=== PATIENT | female | born 1940 | race Caucasian/White ===

== ENCOUNTER → 2016-06-26 | Outpatient (CLI) | payer OTHER ==
--- NOTE | 2016-06-26 18:14 | US ---
Ultrasound Venous Duplex/Doppler left Leg History: Pain and swelling. Findings: Ultrasound venous duplex and Doppler imaging of the common femoral vein, femoral vein, pop liteal vein, calf veins, greater saphenous vein origin, and contralateral common femoral vein demonst rates normal compressibility, color flow, and Doppler flow without deep venous thrombosis. Impression: No deep venous thrombosis left leg. Findings and recommendations discussed with Dr. Fredis Sneed at 1810 hour, today.
== END ==
LOC: FIMAGING 17:12
PROVIDERS: ATTEND Orthopaedic Surgery
DX: M79.605 Pain in left leg (principal); M79.89 Other specified soft tissue disorders

== ENCOUNTER → 2016-10-14 | Outpatient (CLI) | payer OTHER | LOC: BMCIMAGING 14:03 | DX: Z12.31 Encounter for screening mammogram for malignant neoplasm of breast (principal) | CPT/HCPCS: G0202 ==

== ENCOUNTER → 2017-08-12 | Outpatient (CLI) | payer OTHER | LOC: BMCIMAGING 11:28 | PROVIDERS: ATTEND Emergency Medicine | DX: J40 Bronchitis, not specified as acute or chronic (principal) ==

== ENCOUNTER → 2017-10-08 | Outpatient (CLI) | payer OTHER, MEDICARE | LOC: BMCIMAGING 14:59 | PROVIDERS: ATTEND Internal Medicine | DX: N95.0 Postmenopausal bleeding (principal); N85.8 Other specified noninflammatory disorders of uterus; Z79.890 Hormone replacement therapy ==

== ENCOUNTER → 2017-10-16 | Outpatient (CLI) | payer OTHER, MEDICARE | LOC: BMCIMAGING 12:56 | PROVIDERS: ATTEND Internal Medicine | DX: Z12.31 Encounter for screening mammogram for malignant neoplasm of breast (principal) ==

== ENCOUNTER 2018-04-19 04:43 | Day surgery (SDC) | payer OTHER, MEDICARE ==
--- NOTE | 2018-04-18 14:37 | GHP ---
DATE OF ADMISSION: 04/19/2018 DATE OF PLANNED PROCEDURE: 04/19/2018. PREOPERATIVE DIAGNOSIS: Full thickness rotator cuff tear, right shoulder. PLANNED PROCEDURE: Arthroscopic rotator cuff repair, subacromial decompression. HISTORY: The patient is a 77-year-old female who has had almost a year now worth of shoulder pain, f eric conservative management. MRI from last spring showed a full-thickness rotator cuff tear with i mpingement anatomy. Decision was made to proceed with a cuff repair and decompression. PRIOR MEDICAL HISTORY: High cholesterol, chronic low back pain, osteopenia, osteoarthritis. PRIOR SURGICAL HISTORY: Knee scope. MEDICATIONS: Atorvastatin 40 mg, gabapentin 100 mg, zolpidem 10 mg. ALLERGIES: No drug allergies. SOCIAL HISTORY: She is . [place] here [place] town. Former smoker. Occasional alcohol use. REVIEW OF SYSTEMS: No shortness of breath or chest pain. Otherwise, review of systems is unremarkab le. PHYSICAL EXAM: GENERAL: 77-year-old female, alert orient x3. She is 4 feet 11 inches tall, weighs 132 pounds. VITAL SIGNS: Blood pressure is 125/71, heart rate 68, respiratory rate is 14 on room ai r. HEENT: Normocephalic, atraumatic. Extraocular muscles intact. NECK: Supple. There is no lymp hadenopathy. No JVD. CHEST: Clear to auscultation. CARDIOVASCULAR: Regular rate and rhythm. ABD OMEN: Soft, nontender, nondistended. There is no hepatosplenomegaly. EXTREMITIES: Right shoulder shows no obvious deformity or atrophy. Active range of motion with full extension, 170 degrees of fl exion, 70 degrees of external rotation, internal rotation she can get her thumb to L1. Cuff strength supraspinatus is 3/5, infraspinatus 4-/5, subscapularis 4+/5. Positive impingement sign. IMAGING: MRI from [facility] is reviewed. It does show a full-thickness supraspinatus tear invol ving the anterior aspect of the tendon. There is impingement type anatomy with type 2 acromion and s ubacromial bursitis. Moderate arthrosis at the AC joint. Biceps tendon appears intact. ASSESSMENT: Full-thickness rotator cuff tear right shoulder. PLAN: We will proceed with a rotator cuff repair, decompression of the shoulder, possible distal cla vicle excision. Preoperative paperwork was completed. Risks and benefits including continued pain, re-tear of the rotator cuff repair, need for immobilization before 6 weeks postoperatively. She unde rstands these risks and wished to proceed. /[id number]/MODL
[2018-04-19] MEDS ORDERED: ceFAZolin 2 GM/DEXTROSE 100 ML IV ONE (06:04)
[2018-04-19] MEDS ORDERED: LR 1,000 ML IV ONE (06:28)
[2018-04-19] MEDS ORDERED: LIDOCAINE 1% 2 ML INJ ID PRN (06:28)
[2018-04-19] MEDS ORDERED: LIDO/EPI 1% **for epidural** 30 ML SDV ONE (06:48)
[2018-04-19] MEDS ORDERED: BUPIVACAINE/EPI 0.5% 30 ML SDV ONE (06:48)
[2018-04-19] MEDS ORDERED: EPINEPHrine 30 MG/30 ML MDV (0.1 MG/0.1 ML) ONE (06:50)
[2018-04-19] MEDS ORDERED: MIDAZOLAM 2 MG/2 ML VIAL ONE (07:02)
--- NOTE | 2018-04-19 07:07 | PDHPUP ---
History & Physical Update H&P update statement: This history and physical update is based on an assessment of the patient which was completed after admission or registration (within 24 hours), but prior to the surgery/procedure. H&P update: H&P reviewed & patient examined, no change in patient's condition since H&P completed
[2018-04-19] MEDS ORDERED: PROPOFOL 200 MG/20 ML VIAL ONE (07:13)
[2018-04-19] MEDS ORDERED: THROMBIN (BOVINE) 5,000 UNIT VIAL TP ONE (07:23)
[2018-04-19] MEDS ORDERED: CALCIUM CHLORIDE 1 GM/10 ML INJ ONE (07:23)
[2018-04-19] MEDS ORDERED: DEXAMETHASONE 4 MG/ML VIAL ONE (07:39)
[2018-04-19] MEDS ORDERED: ONDANSETRON 4 MG/2 ML VIAL ONE ×2 (07:39→08:53)
[2018-04-19] MEDS ORDERED: MIDAZOLAM 2 MG/2 ML VIAL IVP ONE (07:42)
[2018-04-19] MEDS ORDERED: NALOXONE HCL 0.4 MG/ML INJ IVP PRN (07:42)
[2018-04-19] MEDS ORDERED: ACETAMINOPHEN 500 MG TAB PO PRN (07:42)
[2018-04-19] MEDS ORDERED: fentaNYL 100 MCG/2 ML INJ IVP PRN (07:42)
[2018-04-19] MEDS ORDERED: HYDROCODONE/APAP 5/325 TAB PO PRN (07:42)
[2018-04-19] MEDS ORDERED: HYDROmorphONE/DILAUDID 2 MG/ML INJ IVP PRN (07:42)
[2018-04-19] MEDS ORDERED: ONDANSETRON 4 MG/2 ML VIAL IVP PRN (07:42)
--- NOTE | 2018-04-19 07:44 | PDANEPAE ---
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 bruises easily. hx of recent blepharitis - Chronic Pain History Chronic Pain: Yes (low back, right side) - Surgical History Prior Surgeries: hysteroscopy/polypectomy. tubal ligation. cervical surgery. hip replacement, right. cataract surgery. right menuscus repair. breast reduction ANE Review of Systems Review of Systems: - Exercise capacity METS (RN): 4 METS ANE Patient History - Allergies Allergies/Adverse Reactions: meperidine HCl [From Demerol] Allergy (Verified 04/02/18 14:28) dizziness, nausea oxycodone [Oxycodone] Allergy (Verified 04/02/18 14:28) dizziness, nausea - Home Medications Home Medications: Acid Dial Painter 04/02/18 [Last Taken 04/18/18] Estradiol 04/02/18 [Last Taken 04/18/18] Ibuprofen 04/02/18 [Last Taken 03/24/18] Lipitor 40 mg (*) 04/02/18 [Last Taken 04/18/18] Meloxicam 04/02/18 [Last Taken 03/24/18] Nicotine Gum 04/02/18 [Last Taken 04/19/18] Progesterone,Micronized [Prometrium] 04/02/18 [Last Taken 04/18/18] Restasis Opht Drops(*) 04/02/18 [Last Taken 04/19/18] Vitamin B12 (*) 04/02/18 [Last Taken 04/18/18] Vitamin D3 04/02/18 [Last Taken 04/18/18] Zolpidem Tartrate 04/02/18 [Last Taken 04/18/18] Maxitrol Opht Drops (*) 04/19/18 [Last Taken 04/18/18] - NPO status NPO Since - Liquids (Date): 04/18/18 NPO Since - Liquids (Time): 22:15 NPO Since - Solids (Date): 04/18/18 NPO Since - Solids (Time): 19:30 - Smoking Hx Smoking Status: Former smoker - Family Anes Hx Family Hx Anesthesia Complications: none ANE Labs/Vital Signs - Vital Signs Blood Pressure: 166/93 Heart Rate: 69 Respiratory Rate: 14 O2 Sat (%): 98 Height: 151.13 cm Weight: 60.781 kg ANE Physical Exam - Airway Neck exam: FROM Mallampati Score: Class 2 Mouth exam: normal dental/mouth exam - Pulmonary Pulmonary: clear to auscultation - Cardiovascular Cardiovascular: regular rate and rhythym - ASA Status ASA Status: II ANE Anesthesia Plan Anesthesia Plan: GA w LMA Regional Anesthesia: interscalene BP NB
[2018-04-19] MEDS ORDERED: fentaNYL 100 MCG/2 ML INJ ONE (08:27)
[2018-04-19] MEDS ORDERED: METOCLOPRAMIDE 10 MG/2 ML VIAL ONE (08:27)
[2018-04-19] MEDS ORDERED: SCOPOLAMINE HYDROBROMIDE 1 MG/3 DAYS PATCH TD ONE (08:59)
[2018-04-19] MEDS ORDERED: PROMETHAZINE HCL 25 MG/ML INJ ONE (09:03)
--- NOTE | 2018-04-19 09:05 | POSTOPPROG ---
Post Op Note Date of Operation: 04/19/18 Surgeon: Fredis Sneed Regional Sales Trainer: John spann Anesthesiologist: Dorothy Anesthesia: GET(General Endotracheal) Pre-op Diagnosis: RC tear Rt Post-op Diagnosis: same Procedure: RC repair, SAD, labral debridement Findings: Full thickness RC tear Inf/Abcess present in the surg proc area at time of surgery?: No EBL: Minimal Complications: none
[2018-04-19] MEDS: PROMETHAZINE HCL 25 MG/ML INJ IVP PRN ×2 (09:06→09:19)
--- NOTE | 2018-04-19 09:44 | POSTANESTH ---
Post Anesthetic Evaluation Cardiovascular Status: Normal, Stable Respiratory Status: Normal, Stable, Similar to Pre-op Cond. Pain Control: Adequate, Prn Tx Ordered Nausea/Vomiting Control: Adequate, Prn Tx Ordered Complications Possibly Related to Anesthesia: None Noted
[2018-04-19] MEDS ORDERED: SCOPOLAMINE HYDROBROMIDE 1 MG/3 DAYS PATCH TD SCH (10:00)
--- NOTE | 2018-04-19 10:22 | GOP ---
DATE OF OPERATION: 04/19/2018 SURGEON: Fredis Sneed MD IN HOME AIDE: Jeison Moraes [employer]ER HELPER, [facility] ANESTHESIA: Interscalene block with general. ANESTHESIOLOGIST: Dr. De La Cruz. PREOPERATIVE DIAGNOSIS: Right shoulder rotator cuff tear. POSTOPERATIVE DIAGNOSIS: Right shoulder rotator cuff tear. PROCEDURE PERFORMED: 1. Arthroscopic rotator cuff repair. 2. Labral debridement. 3. Subacromial decompression. FINDINGS: INDICATIONS: The patient is a 77-year-old female with long-standing right shoulder pain. Has failed conservative management. MRI was obtained in the spring, which showed a full-thickness supraspinatu s tear, as well as impingement type anatomy. Decision was made to proceed with a cuff repair and dec ompression. DESCRIPTION OF PROCEDURE: After appropriate informed consent was obtained, patient was taken to the operating room, placed supine on the operating table. Time-out was performed. Patient was identifie d. Correct site was identified, matched with the radiographs available in the room. She received 2 g of Ancef. Following interscalene block, general endotracheal tube anesthesia was administered. Juan serrano was then positioned in the beach chair position with all bony prominences well padded. Right upper extremity was prepped and draped in usual sterile fashion. I instilled 30 mL of normal saline through the standard posterior portal, made a small rowan incision, and introduced the camera through the standard posterior portal, then obtained a standard anterior p ortal under direct visualization. Placed a 5 mm working cannula through there. She had some areas o f near full-thickness cartilage loss in the superior and anterior aspect of the glenoid rim, degenera tive fraying of the labrum. I gently debrided back the labrum and performed a chondroplasty. Looking at the undersurface of the rotator cuff tear, there was a full-thickness tear of the supraspi natus involving about half of the tendon width. I repositioned the camera in the subacromial space. Obtained a standard lateral portal under direct visualization. There was quite a bit of synovitis a nd bursitis in the subacromial space. This was cleaned out with a combination of motorized shaver an d electrocautery device. I freshened up the end of the rotator cuff tendon. It was not retracted an d repaired back nicely. Roughen up the footprint with the motorized bur and then working through a l ateral portal with an 8 mm cannula there. We passed 2 fiber tape sutures in a horizontal mattress co nfiguration, crossed the limbs, pulled out anteriorly, and pulled it back out laterally, placed a sin gle 2 anchor lateral row, and securely fixed the rotator cuff back to the footprint. Suture ends wer e trimmed. I then performed a subacromial decompression. There was a small spur on the inferior asp ect of the clavicle I also trimmed off. Instruments were then withdrawn. Portal incisions were closed with 3-0 Monocryl. Steri-Strips were applied. I instilled 10 mL of PRP at the rotator cuff repair site and 25 mL of 0.5% Marcaine with ep inephrine into the shoulder joint. Sterile dressing and a sling and abduction pillow were applied. The patient was awakened from anesthesia, taken to the recovery room in satisfactory condition. Ther e were no immediate intraoperative complications. John Moraes's assistance was required throughout the entire case. IMPLANTS USED: Arthrex 4.75 mm SwiveLock anchors x2. COMPLICATIONS: None. DRAINS: None. /[id number]/MODL
[2018-04-19 13:57] VITALS: BP 117/72
[2018-04-22] MEDS ORDERED: PATCH REMOVAL 1 EA PATCH TD SCH (09:50)
== END 2018-04-19 14:20 | disposition home or self-care (01) ==
LOC: FSGY 04:43
PROVIDERS: ATTEND Orthopaedic Surgery
DX: M75.111 Incomplete rotator cuff tear or rupture of right shoulder, not specified as traumatic (principal); M65.811 Other synovitis and tenosynovitis, right shoulder; M25.311 Other instability, right shoulder; M19.011 Primary osteoarthritis, right shoulder; E78.5 Hyperlipidemia, unspecified; G89.29 Other chronic pain; M85.89 Other specified disorders of bone density and structure, multiple sites; Z87.891 Personal history of nicotine dependence; Z96.641 Presence of right artificial hip joint
CPT/HCPCS: C1713; J0171; J0690; J1100; J2250; J2405; J2550; J2704; J2765; J3010

== ENCOUNTER → 2018-10-18 | Outpatient (CLI) | payer OTHER, MEDICARE | LOC: BMCIMAGING 12:02 | PROVIDERS: ATTEND Internal Medicine | DX: Z12.31 Encounter for screening mammogram for malignant neoplasm of breast (principal) ==